=== PATIENT | male | born 1985 | race Caucasian/White ===

== ENCOUNTER 2016-12-30 08:55 | Day surgery (SDC) | payer MEDICAID ==
[~2016-12-30 08:55] MED LIST: ceFAZolin 1 GM in NORMAL SALINE MINI-BAG+ 100 ML IV ONE
[2016-12-30] MEDS ORDERED: ceFAZolin 1 GM/10 ML VIAL ONE (10:10)
[2016-12-30] MEDS ORDERED: MIDAZOLAM HCL 2 MG/2 ML SYR IV ONE ×2 (10:24→10:26)
[2016-12-30] MEDS ORDERED: LIDOCAINE HCL 1% 20 ML VIAL SUBCUT ONE ×2 (10:24→10:26)
[2016-12-30] MEDS ORDERED: ceFAZolin 1 GM in NORMAL SALINE MINI-BAG+ 100 ML IV ONE (10:26)
[2016-12-30] MEDS ORDERED: BUPIVACAINE HCL/PF 0.25% 10 ML VIAL INJ ONE ×2 (10:28→11:03)
[2016-12-30] MEDS ORDERED: ACETAMINOPHEN 1,000 MG/100 ML VIAL IV SCH ×3 (10:30→11:29)
[2016-12-30] MEDS ORDERED: FAMOTIDINE IN SALINE, ISO-OSM 20 MG/50 ML PIGGYBACK IV SCH ×2 (10:30→11:29)
[2016-12-30] MEDS ORDERED: FAMOTIDINE IN SALINE, ISO-OSM 50 ML IV ONE (10:34)
[2016-12-30] MEDS ORDERED: ACETAMINOPHEN 1,000 MG/100 ML VIAL IV ONE (10:34)
[2016-12-30] MEDS ORDERED: MIDAZOLAM HCL 2 MG/2 ML VIAL ONE (10:35)
[2016-12-30] MEDS ORDERED: KETOROLAC TROMETHAMINE 30 MG/ML VIAL ONE (10:42)
[2016-12-30] MEDS ORDERED: ONDANSETRON HCL 4 MG/2 ML VIAL ONE (10:42)
[2016-12-30] MEDS ORDERED: FENTANYL 100 MCG/2 ML VIAL ONE ×2 (10:42→11:26)
[2016-12-30] MEDS ORDERED: LACTATED RINGERS 1,000 ML IV SCH ×4 (11:00→12:00)
[2016-12-30] MEDS ORDERED: GLYCOPYRROLATE 0.2 MG/ML VIAL IV SCH ×3 (11:00→11:29)
[2016-12-30] MEDS ORDERED: HEMOSTATIC MATRIX 5 ML SYR MISC ONE (11:12)
[2016-12-30] MEDS ORDERED: MORPHINE SULFATE 10 MG/ML SYR IV PRN (11:29)
[2016-12-30] MEDS ORDERED: HYDROmorphone HCL 1 MG/ML SYR IV PRN (11:29)
[2016-12-30] MEDS ORDERED: ONDANSETRON HCL 4 MG/2 ML VIAL IV PRN (11:29)
[2016-12-30] MEDS ORDERED: FENTANYL 100 MCG/2 ML VIAL IV PRN (11:29)
[2016-12-30 12:51] VITALS: RESP 14; TEMP 98
[2016-12-30 13:27] VITALS: BP 127/79; PULSE 60; O2SAT 94
--- NOTE | 2016-12-30 13:42 | PROCEDURE NOTE: Gen Surgery ---
General Surgery Procedure Note - Date of Encounter Date of Encounter: 12/30/16 - Brief Operative Note (1) Right inguinal hernia Date of procedure: 12/30/16 Pre-Op Diagnosis: Right inguinal hernia Post-op diagnosis: same Procedure: Right inguinal hernia repair Implants: Mesh Anesthesia Type: General (LMA Nola Robles) Physician: DONALDO KRISHNAMURTHY Estimated Blood Loss: 20 Pathology: none sent X-ray taken: No Images viewed by surgeon: No Images viewed by radiologist: No Sponge and instrument counts: correct Condition: stable Disposition: same day Narrative: the patient had a direct riding or hernia. No indirect sac was noted. No femorals hernia was noted. The iliohypogastric nerve was preserved. I believe the ilioinguinal nerve was preserved as well and appeared to be combined with the ileohypogastric. A plug of mesh was placed in the pre just below the inferior epigastric vessels. This seemed to be the primary area of weakness. A Abby type mesh was placed
--- NOTE | 2016-12-30 17:01 | OPERATIVE REPORT ---
DATE OF SURGERY: 12/30/16 SURGEON: Theodore Delacruz MD ANESTHESIA: General via laryngeal mask airway by Christina Robles CRNA. PREOPERATIVE DIAGNOSIS: Right inguinal hernia. POSTOPERATIVE DIAGNOSIS: Direct right inguinal hernia. PROCEDURE PERFORMED: Repair of direct right inguinal hernia. FINDINGS: At the time of exploration, there was a weakness in the direct space and the hernia seemed to be bulging near the inferior epigastric vessels. I did not find an indirect sac. A patch of mesh was placed in the preperitoneal position just underneath the inferior epigastric vessels as this appeared to be where the weakness was. A Abby mesh was placed over the top of this. I did not identify the ilioinguinal nerve. What appeared to the iliohypogastric nerve, ran underneath the external oblique aponeurosis and then coursed more medially, and I believe a branch of this was the ilioinguinal nerve and it coursed down medially near the pubic tubercle to the groin region. The mesh was able to be placed underneath this nerve bundle, and the nerve bundle was preserved. SUMMARY: The patient was taken to the operating room and placed in the supine position. He was given a smooth induction of general anesthesia via laryngeal mask airway. His right groin region was shaved and then prepped with a ChloraPrep solution. Time out was called and the correct patient, correct preoperative medications and correct procedure were verified. The anterior iliac spine and pubic tubercle were marked out. The mid portion was taken to be the deep ring. Slightly above this area a 7-cm incision was marked out. Then 0.25% Marcaine without epinephrine was infiltrated and the skin was sharply incised. Deeper dissection was done with a cautery. The external oblique aponeurosis was identified and sized through the external ring. The nerve bundle was underneath the external oblique aponeurosis on the superior edge. This was preserved. Retractors were placed and dissection was begun on the cord itself. No sac was noted here. There was weakness near the inferior epigastric vessels in the direct space in this region. This appeared to be the cause of the herniation. The cord was circumferentially controlled at the pubic tubercle. Next the inferior epigastric vessels were grasped with a Alexander clamp and the preperitoneal space was developed. A mesh was cut in a round configuration and then opened up underneath the transversalis fascia to act as a plug in this area. Next a Abby-type mesh was brought into the field and was sewn in place with running and interrupted 2-0 Prolene sutures. Mahesh- Seal was placed in all tissue planes and then the external oblique aponeurosis was reapproximated with a running 3-0 Vicryl. The skin was closed with running subcuticular 4-0 Monocryl. Steri-Strips and dressing were then applied, anesthesia was reversed and the patient was taken from the operating room to the recovery room. HARLEY
--- NOTE | 2017-01-01 15:13 | PREOPERATIVE H&P ---
History of Present Illness (Theodore Delacruz M.D.; 12/28/2016 10:48 AM) The patient is a 31 year old male who presents with an inguinal hernia. The hernia is located on the right side. The pain is located in the right lower quadrant. There is no radiation. The patient describes the pain as sharp. Onset was sudden. Allergies (Mildred Herrera RN; 12/28/2016 10:30 AM) No Known Drug [id number]/2017 Family History (Mildred Herrera RN; 12/28/2016 10:35 AM) Father , Hypertension, Substance Abuse. Mother In good health. Sister In good health, Extrinsic Asthma. Social History (Mildred Herrera RN; 12/28/2016 10:31 AM) Illicit drug use Uses marijuana. 1/2 oz per week Tobacco use Current every day smoker, Cigarettes per day, Would like to quit, Has tried unsuccessfully in the past to quit. 1 pack per day for 17 years Alcohol use Occasional alcohol use. one drink once a week Medication History (Mildred Herrera RN; 12/28/2016 10:31 AM) No Current Medications Review of Systems (Theodore Delacruz M.D.; 12/28/2016 10:49 AM) General Not Present- Chills and Fever. Skin Not Present- Rash. Neck Not Present- Neck Pain. Respiratory Not Present- Cough and Shortness of Breath. Cardiovascular Not Present- Heart Problems. Gastrointestinal Not Present- Vomiting (About a year ago she had vomiting on a daily basis. This would usually occur the mornings. He had a workup with an ultrasound which showed a lesion on his liver. Apparently this was a benign lesion and not felt to be responsible for his vomiting. She does not remember noting hernia back that long ago. Since that time the vomiting stopped. He has been able to keep his weight stable.). Endocrine Not Present- Diabetes and Thyroid Problems. Vitals (Mildred Herrera RN; 12/28/2016 10:40 AM) 12/28/2016 10:35 AM Weight: 157.7 lb Height: 71.5in Body Surface Area: 1.92 m Body Mass Index: 21.69 kg/m Pain Level: 11/20 Temp.: 99F(Temporal) Pulse: 77 (Regular) Resp.: 14 (Unlabored) P.OX : 95% (Room air) BP: 138/90 (Sitting, Left Arm, Standard) Physical Exam (Theodore Delacruz M.D.; 12/28/2016 10:50 AM) General Mental Status-Alert. General Appearance-Not Anxious. Orientation-Oriented X3. Chest and Lung Exam Chest and lung exam reveals -Clear. Cardiovascular Cardiovascular examination reveals -RRR, No murmurs present. Abdomen Inspection Inspection of the abdomen reveals - Soft, Non-tender, No HSM, masses, bruits, or inguinal nodes and Bowel sounds present. Hernias - Indirect inguinal hernia - Right - Reducible. Assessment & Plan (Theodore Delacruz M.D.; 12/28/2016 11:10 AM) Non-recurrent inguinal hernia without obstruction or gangrene, unspecified laterality (K40.90) Current Plans INITIAL REPAIR OF REDUCIBLE INGUINAL,5+YRS (28492) Started Hydrocodone-Acetaminophen 5-325MG, 1 (one) Tablet every four hours, as needed, #20, 5 days starting 12/28/2016, No Refill. Pt Education - Dr Delacruz's Post Op Instructions: discussed with patient and provided information. Signed by Theodore Delacruz M.D. (12/28/2016 11:11 AM) [facility]
== END 2016-12-30 13:15 | disposition home or self-care (01) ==
LOC: SDS 08:55
PROVIDERS: ATTEND Surgery
DX: K40.90 Unilateral inguinal hernia, without obstruction or gangrene, not specified as recurrent (principal); F17.210 Nicotine dependence, cigarettes, uncomplicated; F12.90 Cannabis use, unspecified, uncomplicated
CPT/HCPCS: C1781; J0690; J1885; J2250; J2405